=== PATIENT | female | born 1935 | race Hispanic/Latino ===

== ENCOUNTER 2017-06-06 09:42 | Emergency (ER) | payer MEDICARE ==
--- NOTE | 2017-06-06 11:23 | Emergency Department Report ---
Upper Extremity - [facility] Chief Complaint: Extremity Injury, Lower Stated Complaint: FALL WITH INJURY TO LEG Time Seen by Provider: 06/06/17 11:23 ED Review of Systems ROS: Stated complaint: FALL WITH INJURY TO LEG Other details as noted in HPI ED Past Medical Hx - Past Medical History Hx Heart Attack/AMI: Yes Hx of Cancer: Yes Hx COPD: Yes - Surgical History Hx Pacemaker: Yes Hx Cholecystectomy: Yes Additional Surgical History: Hysterectomy - Social History Smoking Status: Current Every Day Smoker Substance Use Type: None Upper Extremity Exam - Exam General: Vital signs noted. No distress. Alert and acting appropriately. ED Course Vital Signs 06/06/17 10:08 Temperature 98.6 F Pulse Rate 80 Respiratory 16 Rate Blood Pressure 150/72 O2 Sat by Pulse 100 Oximetry Critical care attestation.: If time is entered above; I have spent that time in minutes in the direct care of this critically ill patient, excluding procedure time. ED Disposition Condition: Stable Referrals: PRIMARY CARE, [Primary Care Provider] - 3-5 Days
--- NOTE | 2017-06-06 11:24 | Emergency Department Report ---
ED Lower Extremity HPI - General Chief Complaint: Extremity Injury, Lower Stated Complaint: FALL WITH INJURY TO LEG Time Seen by Provider: 06/06/17 11:23 Source: patient, family Mode of arrival: Wheelchair Limitations: No Limitations - History of Present Illness Initial Comments: Patient reports that she was at her doctor's appointment to get her ear looked at for flexion. She is she tripped and fell on a scattered rub. Patient presented to the triage area purported skin tears and also large skin tear to right leg and abrasions to left knee, left elbow with swelling. Pain is 5 out of 10 and dull. Worsening movement better with rest. No medication taken. She was brought directly from the doctor's office via wheelchair by office staff to the emergency room. Denies any head injury. She is with her daughter. She has multiple medical problems. MD Complaint: knee injury, leg injury, fall, other (left elbow injury) -: This morning Injury: Leg: Right, Left (cristino leg injury), Knee: Left (knee injuru) Type of Injury: other (fall) Place: other (Indoor) Severity: mild Severity scale (0 -10): 2 Improves With: immobilization, rest Worsens With: weight bearing, palpation Context: fall Associated Symptoms: swelling, ambulatory, other (bleeding) Treatments Prior to Arrival: bandage - Related Data Previous Rx's Medication Instructions Recorded Last Taken Type Clindamycin [Clindamycin CAP] 300 mg PO Q8H 7 Days #21 cap 06/06/17 Unknown Rx Allergies Allergy/AdvReac Type Severity Reaction Status Date / Time Beta-Blockers Allergy Swelling Verified 06/06/17 10:18 (Beta-Adrenergic Bloc ED Review of Systems ROS: Stated complaint: FALL WITH INJURY TO LEG Other details as noted in HPI Comment: All other systems reviewed and negative Constitutional: no symptoms reported ENT: denies: throat pain Respiratory: no symptoms reported Cardiovascular: denies: chest pain, palpitations, dyspnea on exertion, edema, syncope, paroxysmal nocturnal dyspnea Gastrointestinal: denies: abdominal pain, nausea, vomiting Musculoskeletal: joint swelling, arthralgia. denies: back pain Skin: other (bruising, lacerations and abrasions) Neurological: abnormal gait. denies: headache, numbness, paresthesias, confusion ED Past Medical Hx - Past Medical History Previous Medical History?: Yes Hx Heart Attack/AMI: Yes Hx of Cancer: Yes Hx COPD: Yes - Surgical History Past Surgical History?: Yes Hx Pacemaker: Yes Hx Cholecystectomy: Yes Additional Surgical History: Hysterectomy - Family History Family history: hypertension - Social History Smoking Status: Current Every Day Smoker Substance Use Type: None - Medications Home Medications: Home Medications Medication Instructions Recorded Confirmed Last Taken Type Clindamycin [Clindamycin CAP] 300 mg PO Q8H 7 Days #21 cap 06/06/17 Unknown Rx ED Physical Exam - General Limitations: No Limitations General appearance: alert, in no apparent distress - Head Head exam: Present: atraumatic, normocephalic, normal inspection - Eye Eye exam: Present: normal appearance, PERRL, EOMI. Absent: periorbital swelling , periorbital tenderness Pupils: Present: normal accommodation - ENT ENT exam: Present: normal exam, normal orophraynx, mucous membranes moist - Neck Neck exam: Present: normal inspection, full ROM, other (no c spinE [id number]). Absent: tenderness, meningismus, lymphadenopathy - Respiratory Respiratory exam: Present: normal lung sounds bilaterally. Absent: respiratory distress, chest wall tenderness - Cardiovascular Cardiovascular Exam: Present: regular rate, normal rhythm, normal heart sounds - GI/Abdominal GI/Abdominal exam: Present: soft - Extremities Exam Extremities exam: Present: normal inspection, full ROM, tenderness (LEFT ELBOW, LEFT KNEE, RT LEG), normal capillary refill, joint swelling (LEFT ELBOW). Absent: pedal edema, calf tenderness - Expanded Upper Extremity Exam Left General: Present: laceration, abrasion. Absent: normal inspection, nail injury (#), foreign body, amputation, avulsion Shoulder Exam: Present: normal inspection, full ROM. Absent: swelling, abrasion , laceration, ecchymosis, deformity, crepidus, dislocation, tenderness over AC joint Upper Arm exam: Present: normal inspection, full ROM. Absent: tenderness, swelling, abrasion, laceration, deformity, crepidus, dislocation, erythema Elbow exam: Present: full ROM, tenderness, swelling, abrasion. Absent: normal inspection, laceration, ecchymosis, deformity, crepidus, dislocation, erythema, effusion, pain w/ pronation/supination, tenderness over radial head Forearm Wrist exam: Present: normal inspection, full ROM. Absent: tenderness, swelling, abrasion, laceration, ecchymosis, deformity, crepidus, dislocation, erythema, tenderness over anatomical snuff box, pain with axial thumb loading Hand Wrist exam: Present: normal inspection, full ROM. Absent: tenderness, swelling, abrasion, laceration, ecchymosis, deformity, crepidus, dislocation, erythema, amputation, nail avulsion, subungual hematoma Neuro motor exam: Present: wrist extension intact, thumb opposition intact, thumb IP flexion intact, thumb adduction intact, fingers 2-5 abduction intact Neurosensory exam: Present: 2-point discrimination, radial nerve intact, ulnar nerve intact, median nerve intact Vascular: Present: vascular compromise, normal capillary refill, radial pulse, brachial pulse, ulnar pulse. Absent: Pallo, pulse deficit radial art, pulse deficit ulnar art, pulse deficit brachial art - Back Exam Back exam: Present: normal inspection, full ROM, other (patient ambulatory). Absent: tenderness, CVA tenderness (R), CVA tenderness (L), muscle spasm, paraspinal tenderness, vertebral tenderness, rash noted - Neurological Exam Neurological exam: Present: alert, oriented X3, abnormal gait (abnormal gait due to fall with pain to lower extremities), reflexes normal - Psychiatric Psychiatric exam: Present: normal affect, normal mood - Skin Skin exam: Present: warm, dry, abrasion ( left ElboE, lEft knEE, ), other ( LACRATION RT LeG) - Expanded Skin Exam Expanded Type of lesion: Present: laceration (rT LEG), abrasion (LEFT ELBOW AND LT LOER eXT) Distribution of rash: LUE, RLE, LLE Description of rash: Present: size (14 CM IRReG), tenderness (14 CM RT LeG), erythematous, swelling, other (CONTUSION RT leG). Absent: discharge, fluctuant , indurated ED Course Vital Signs 06/06/17 06/06/17 06/06/17 10:08 12:17 13:17 Temperature 98.6 F Pulse Rate 80 Respiratory 16 18 18 Rate Blood Pressure 150/72 Blood Pressure [Right] O2 Sat by Pulse 100 Oximetry 06/06/17 15:02 Temperature Pulse Rate 74 Respiratory 20 Rate Blood Pressure Blood Pressure 144/70 [Right] O2 Sat by Pulse 95 Oximetry - Reevaluation(s) Reevaluation #1: 06/06/17 14:33 Patient given clindamycin 600 mg IM, Tylenol 650 mg by mouth and booster 0.5 mL in emergency room. See procedure note in detail for laceration repair Reevaluation #2: 06/06/17 14:45 Patient wound/abrasion cleansed with normal saline and Neosporin ointment placed the sites. Pain is controlled with Tylenol. See procedure note for laceration repair. - Laceration /Wound Repair Right Lower Medial Wound Location: lower extremity (right leg) Wound Length (cm): 14 Wound's Depth, Shape: irregular, flap, contused tissue Wound Explored: no foreign body removed Irrigated w/ Saline (ccs): 500 Betadine Prep?: Yes Anesthesia: 0.5% Sensorcaine (Marcaine 0.5) Volume Anesthetic (ccs): 10 Wound Debrided: moderate Wound Repaired With: sutures Suture Size/Type: 4:0 (Prolene), proline Number of Sutures: 28 Layer Closure?: No Sterile Dressing Applied?: Yes ED Lower Extremity MDM - Radiology Data Radiology results: report reviewed X-ray of left Humerus to include left elbow revealed no acute fracture dislocation X-ray of right tib-fib reveal no acute fracture or dislocation X-ray of left knee reveal no acute fracture or dislocation - Medical Decision Making ED course: Patient here after accidental fall this morning in brought to the hospital by her daughter accompanied by doctor's office staff via wheelchair. She is complaining injuries after fall. She was sent to have contusion to left elbow with abrasion, abrasions to left knee and large deep skin tear to right leg. Laceration repair, please refer to procedure note for details. Patient is neurologically intact and she is able to ambulate. Multiple x-rays done and there are no fractures or dislocation. Please refer to x-ray sections for detail. Patient given clindamycin 600 mg IM in emergency room for prevention of infection, Tylenol 650 mg by mouth for pain and her tetanus vaccine was updated. Patient is stable and discharged home in stable condition with her family member with prescription for clindamycin and to take [id number] Tylenol per dosing chart guideline for pain. She was given instructions on wound care along with her daughter and they voice understanding. Patient will need to follow up with her primary care physician which she does have one and she was instructed to do so. Critical care attestation.: If time is entered above; I have spent that time in minutes in the direct care of this critically ill patient, excluding procedure time. ED Disposition Clinical Impression: Arthralgia of multiple sites, bilateral, Abrasion, multiple sites, Contusion, multiple sites Laceration of right lower leg Qualifiers: Encounter type: initial encounter Qualified Code(s): S81.811A - Laceration without foreign body, right lower leg, initial encounter Fall, accidental Qualifiers: Encounter type: initial encounter Qualified Code(s): W19.XXXA - Unspecified fall, initial encounter Disposition: TO HOME OR SELFCARE Is pt being admited?: No Does the pt Need Aspirin: No Condition: Stable Instructions: Suture Care (ED), Laceration (ED), Fall Prevention for Older Adults (ED), Contusion in Adults (ED), Abrasion (ED), Arthralgia (ED) Additional Instructions: Please keep affected area clean and dry PLEASE RETURN EMERGENCY ROOM , primary care and/or urgent care to have stitches removed in 7-10 days Apply Neosporin to abrasion site. Follow-up with your primary care physician in 2-3 days Take plain Tylenol 500 mg every 8 hours 3 days as needed for pain Prescriptions: Clindamycin [Clindamycin CAP] 300 mg PO Q8H 7 Days #21 cap Referrals: PRIMARY CARE, [Primary Care Provider] - 06/08/17 return to, emergency room [Other] - 3-5 Days (7-10 days for stitches removal May also go to primary care or urgent care to have stitches removed) Forms: Accompanied Note
[2017-06-06] MEDS ORDERED: NACL 0.9% 500 ML IR ONE (11:46)
[2017-06-06] MEDS ORDERED: TRIPLE ANTIBIOTIC TP ONE ×2 (11:51→11:54)
[2017-06-06] MEDS ORDERED: MARCAINE 0.5% INFILTRATI ONE (11:54)
[2017-06-06] MEDS ORDERED: TYLENOL PO ONE (11:54)
[2017-06-06] MEDS ORDERED: NACL 0.9% IR ONE (11:54)
[2017-06-06] MEDS ORDERED: CLEOCIN IM ONE (11:54)
--- NOTE | 2017-06-06 14:33 | XRay Report ---
LEFT HUMERUS RADIOGRAPHS INDICATION: Fall, left arm pain. COMPARISON: None similar. FINDINGS: AP and lateral left humerus radiographs demonstrate intact bones, included joints and soft tissues. Possible osteopenia. CONCLUSION: Normal left humerus radiographs. Thank you for the opportunity to participate in this patient's care.
--- NOTE | 2017-06-06 14:36 | XRay Report ---
LEFT KNEE RADIOGRAPHS INDICATION: Fall, left knee injury. COMPARISON: None similar. FINDINGS: AP, oblique and crosstable lateral left knee radiographs demonstrate mild to moderate medial knee compartment narrowing. Mild tibial spines and superior patellar pole degenerative spurring. Slight superior patellar enthesophyte. No suprapatellar effusion. Extensive atherosclerotic vascular calcifications. CONCLUSION: Left knee degenerative changes, as described. Thank you for the opportunity to participate in this patient's care.
--- NOTE | 2017-06-06 14:38 | XRay Report ---
LEFT TIBIA AND FIBULA RADIOGRAPHS INDICATION: Fall with laceration and abrasion to bilateral lower extremities. COMPARISON: None similar. FINDINGS: AP and lateral left tibia and fibula radiographs demonstrate intact bones. Included knee and ankle articulations appear intact. Mild tibial spines degenerative spurring. Lower extremity soft tissue heterogeneity/possible edema. Some swelling at the ankle also not excluded. Small plantar calcaneal spur. Possible osteopenia. CONCLUSION: No acute left tibia or fibula radiographic abnormality with few other findings, as above. Please correlate. Thank you for the opportunity to participate in this patient's care.
[2017-06-06 15:02] VITALS: BP 144/70
== END 2017-06-06 15:01 | disposition home or self-care (01) ==
LOC: ED 09:42
DX: S81.811A Laceration without foreign body, right lower leg, initial encounter (principal); S50.312A Abrasion of left elbow, initial encounter; S80.212A Abrasion, left knee, initial encounter; W01.0XXA Fall on same level from slipping, tripping and stumbling without subsequent striking against object, initial encounter; Y93.89 Activity, other specified; Y92.89 Other specified places as the place of occurrence of the external cause; Y99.8 Other external cause status
CPT/HCPCS: 96372; 99283; A6250